=== PATIENT | female | born 1985 | race Caucasian/White ===

== ENCOUNTER → 2023-09-13 | Outpatient (CLI) | payer MEDICAID, SELFPAY ==
--- NOTE | 2023-09-13 08:03 | RAD_ITS ---
INDICATION: Female infertility, unspecified EXAMINATION/TECHNIQUE: Routine hysterosalpingography was performed. Total Fluoroscopic Time: 2 minutes and 22 seconds AND number of Fluoroscopic Images: 4 OR Radiation dosage index: 51.26 mGy COMPARISON: No relevant prior comparison study available FINDINGS: The uterine cavity contour is unremarkable. There are no filling defects or abnormalities. Both fallopian tubes are patent with free peritoneal spillage bilaterally. There was initial filling of the urinary bladder. RAD/Salpingogram IMPRESSION: Negative hysterosalpingogram. Electronically Signed: Juan M Sheehan MD at 9:21 EDT ,
--- NOTE | 2023-09-13 15:03 | PCM.OPRPT ---
Report of Operation Date of Procedure: 09/13/23 Pre-Operative Diagnosis: endometriosis, infertility Post-Operative Diagnosis: same Surgery/Procedure Performed:: Hysterosalpingogram Description of Surgical Findings:: Normal cervix and vagina Surgeon: Candie Seymour Type of Anesthesia: None Special Medications: none Specimen's removed: none Drains: none Estimated Blood Loss (mL): 0 Fluids Replaced: n/a Description of Procedure: The patient was consented and a timeout was performed. She was consented for hysterosalpingogram. She was placed on the radiology table in the dorsolithotomy position and a speculum was placed in the vagina. The cervix was cleansed with Betadine and a tenaculum was used to grasp the anterior lip of the cervix. The HSG catheter was placed and with Dr. Sheehan present the radiopaque dye was injected slowly and steadily. Spill was noted from the left tube and then it appeared that the bladder filled. Patient then voided after that vaginal instruments were removed. A new HSG catheter was placed and the bladder was confirmed to be empty. I then injected more dye slowly leaving the speculum in the vagina and the uterus filled and both tubes. The bladder did not refill. The radiologist suspected that the bladder had filled through pressure in the vagina filling the urethra or forcing the dye into the bladder. Interpretation of the study is dictated in a separate radiology report. Patient tolerated the procedure well. The instruments removed from the vagina and a vaginal sweep was completed by me. Grafts/Implants Used: none Complications none
== END | disposition home or self-care (01) ==
PROVIDERS: Referring Provider Obstetrics & Gynecology; Visit Provider Obstetrics & Gynecology
DX: N97.9 Female infertility, unspecified (principal)
CPT/HCPCS: 58340; 74740